=== PATIENT | female | born 1960 | race African-American/Black ===

== ENCOUNTER 2018-12-07 13:45 | Emergency (ER) | payer OTHER ==
[~2018-12-07] VITALS: Ht 152.4 cm; Wt 51.7 kg
[2018-12-07 13:56] VITALS: BP 173/79
[2018-12-07] MEDS ORDERED: ACETAMINOPHEN 325 MG TABLET. PO ONE (14:30)
[2018-12-07] MEDS ORDERED: DIPHTH,PERTUSS(ACELL),TET TOX 0.5 ML DISP.SYRIN. VAX IM ONE (14:30)
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
--- NOTE | 2018-12-07 14:45 | RAD ---
RIGHT HAND, VIEWS 3 RIGHT WRIST, 3 VIEWS Indication: Right wrist and hand pain and swelling. Hand Findings: Views of the hand demonstrate normal alignment. No acute fracture. Small bony excrescences medially are noted on each side of the third PIP joint. Mineralization is normal. There are no erosive changes. Wrist findings: There is no acute fracture or dislocation. No osseous lesion is identified. The mineralization is normal. Mild dorsal soft tissue swelling of the wrist. No radiopaque foreign body. IMPRESSION: No acute fracture. Electronically signed by: Will Hopkins MD (12/07/2018 2:42 PM) [id number]
== END 2018-12-07 14:02 | disposition home or self-care (01) ==
LOC: ER 13:45
DX: S61.411A Laceration without foreign body of right hand, initial encounter (principal); R60.0 Localized edema; I10 Essential (primary) hypertension; W26.0XXA Contact with knife, initial encounter; Y93.89 Activity, other specified; Y92.89 Other specified places as the place of occurrence of the external cause; Y99.8 Other external cause status
CPT/HCPCS: 73110; 73130; 90471; 90715; 99284

== ENCOUNTER 2020-09-04 20:15 | Emergency (ER) | payer OTHER ==
[~2020-09-04] VITALS: Ht 160 cm; Wt 50.0 kg
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
[2020-09-04 22:18] VITALS: BP 217/98
[2020-09-04] MEDS ORDERED: amLODIPine BESYLATE 5 MG TABLET PO ONE (22:30)
[2020-09-04] MEDS ORDERED: IBUPROFEN 200 MG TABLET. PO ONE (22:30)
== END 2020-09-04 22:23 | disposition left against medical advice (07) ==
LOC: ER 20:15
DX: I10 Essential (primary) hypertension (principal); R51.9 Headache, unspecified; F32.9 Major depressive disorder, single episode, unspecified; Z90.89 Acquired absence of other organs; Z98.890 Other specified postprocedural states; Z76.5 Malingerer [conscious simulation]; Z87.820 Personal history of traumatic brain injury
CPT/HCPCS: 99283